=== PATIENT | female | born 1975 ===

== ENCOUNTER 2018-03-08 12:43 | Inpatient (IN) | payer MEDICAID ==
[2018-03-08] MEDS ORDERED: Sodium Chloride 0.9% 1,000 ML IV STA (15:13)
--- NOTE | 2018-03-08 15:27 | ED PDOC ---
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 She sat down and the next thing she realized was that the ambulance was there. Patient denies chest pain, shortness of breath, palpitations, paresthesia, incontinence, seizure like activity, head trauma, visual changes or any similar symptoms in the past. PMD: none provided Past Medical History Reviewed: Historical Data, Nursing Documentation, Vital Signs Vital Signs: Last Vital Signs Temp 98.5 F 03/08/18 12:48 Pulse 60 03/08/18 12:48 Resp 16 03/08/18 12:48 BP 86/55 L 03/08/18 12:48 Pulse Ox 100 03/08/18 12:48 - Medical History PMH: No Chronic Diseases - Surgical History Other surgeries: tubal ligation - Family History Family History: States: Unknown Family Hx - Social History Current smoker - smoking cessation education provided: No Ex-Smoker (has not smoked in the last 12 months): No Alcohol: None Drugs: Denies - Allergies Allergies/Adverse Reactions: Allergies Allergy/AdvReac Type Severity Reaction Status Date / Time No Known Allergies Allergy Verified 03/08/18 12:48 Review of Systems ROS Statement: Except As Marked, All Systems Reviewed And Found Negative Neurological: Positive for: Other (syncope) Physical Exam - Reviewed Nursing Documentation Reviewed: Yes Vital Signs Reviewed: Yes - Physical Exam Appears: Positive for: Non-toxic, No Acute Distress Head Exam: Positive for: ATRAUMATIC, NORMOCEPHALIC Skin: Positive for: Warm, Dry, Pallor Eye Exam: Positive for: EOMI, PERRL, Other (pale conjunctiva) Neck: Positive for: Normal Cardiovascular/Chest: Positive for: Regular Rate, Rhythm. Negative for: Murmur Respiratory: Positive for: Normal Breath Sounds. Negative for: Respiratory Distress Gastrointestinal/Abdominal: Positive for: Normal Exam, Soft. 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 Negative for: Motor/Sensory Deficits, Aphasia, Facial Droop - Laboratory Results Result Diagrams: 03/08/18 15:30 03/08/18 15:30 - ECG O2 Sat by Pulse Oximetry: 100 (RA) Pulse Ox Interpretation: Normal Medical Decision Making Medical Decision Making: Time: 151 Initial Impression: Syncope Initial Plan: --ABO/Rh type --Type and screen --EKG --CMP --Troponin --CBC with differentials --PTT --Prothrombin time --CXR --Glucose --NS --Urinalysis Time: 1609 Chest x-ray FINDINGS: LUNGS: No focal consolidation. Nodular density projecting over the left lower lobe, likely nipple shadow. Please note that chest x-ray has limited sensitivity for the detection of pulmonary masses. PLEURA: No significant pleural effusion identified. No definite pneumothorax . CARDIOVASCULAR: The cardiomediastinal silhouette appears within normal limits of size. OSSEOUS STRUCTURES: No acute osseous abnormality identified. VISUALIZED UPPER ABDOMEN: Unremarkable. OTHER FINDINGS: None. IMPRESSION: Macro No Nodular density at the left lung base likely represents nipple shadow. 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 ---- Scribe Attestation: Documented by Lyric Mcfarlane, acting as a scribe for Delia Pritchard MD Provider Scribe Attestation: All medical record entries made by the Scribe were at my direction and personally dictated by me. I have reviewed the chart and agree that the record accurately reflects my personal performance of the history, physical exam, medical decision making, and the department course for this patient. I have also personally directed, reviewed, and agree with the discharge instructions and disposition. Disposition - Clinical Impression Clinical Impression: Symptomatic anemia, Syncope - Patient ED Disposition Is Patient to be Admitted: Yes - Disposition Disposition Time: 17:00 Condition: GUARDED Forms: [facility] ([employer]) - Pt Status Changed To: Hospital Disposition Of: Inpatient - Admit Certification Admit to Inpatient:: After my assessment, the patient will require hospitalization for at least two midnights. This is because of the severity of symptoms shown, intensity of services needed, and/or the medical risk in this patient being treated as an outpatient. - POA Present On Arrival: None
[2018-03-08 16:01] LABS: ALB/GLOB RATIO 1.3 (1.0-2.1); ALBUMIN 4.4 g/dL (3.5-5.0); ALT/SGPT 28 U/L (9-52); AST/SGOT 32 U/L (14-36); BLOOD UREA NITROGEN 8 mg/dl (7-17); CALCIUM 9.3 mg/dL (8.4-10.2); GFR NON-AFRICAN AMERICAN > 60
[2018-03-08 16:02] LABS: INR 1.1; PROTHROMBIN TIME 12.2 Seconds (9.8-13.1)
[2018-03-08 16:05] LABS: PARTIAL THROMBOPLASTIN TIME 26.1 Seconds (25.6-37.1)
--- NOTE | 2018-03-08 16:10 | RAD ---
HISTORY: Syncope COMPARISON: None available. TECHNIQUE: Chest, one view. FINDINGS: LUNGS: No focal consolidation. Nodular density projecting over the left lower lobe, likely nipple shadow. Please note that chest x-ray has limited sensitivity for the detection of pulmonary masses. PLEURA: No significant pleural effusion identified. No definite pneumothorax . CARDIOVASCULAR: The cardiomediastinal silhouette appears within normal limits of size. OSSEOUS STRUCTURES: No acute osseous abnormality identified. VISUALIZED UPPER ABDOMEN: Unremarkable. OTHER FINDINGS: None. IMPRESSION: Macro No Nodular density at the left lung base likely represents nipple shadow.
[2018-03-08 16:28] LABS: SQUAMOUS EPITHIAL 1 /hpf (0-5); URINE BILIRUBIN NEGATIVE (NEGATIVE); URINE BLOOD NEGATIVE (NEGATIVE); URINE CLARITY SLIGHTY-CLOUDY (Clear); URINE COLOR YELLOW (YELLOW); URINE GLUCOSE (UA) NEG (Normal); URINE LEUKOCYTE ESTERASE NEG Leu/uL (Negative); URINE PROTEIN 30 mg/dL (NEGATIVE); URINE UROBILINOGEN 0.2-1.0 mg/dL (0.2-1.0)
[2018-03-08 16:39] LABS: BASO # 0.1 K/uL (0.0-0.2); BASO % 1.2 % (0.0-2.0); EOS % 0.4 % (0.0-4.0); LYMPH # 2.2 K/uL (1.0-4.3); LYMPH % 28.7 % (20.0-40.0); MEAN CELL VOLUME 55.2 fl (81.0-99.0); MEAN CORPUSCULAR HEMOGLOBIN 15.3 pg (27.0-31.0); MEAN CORPUSCULAR HGB CONC 27.7 g/dL (33.0-37.0); MEAN PLATELET VOLUME 8.5 fl (7.2-11.7); MONO # 0.3 K/uL (0.0-0.8); MONO % 3.8 % (0.0-10.0); NEUT # 5.2 K/uL (1.8-7.0); NEUT % 65.9 % (50.0-75.0); NRBC % 0.2 % (0.0-0.0); RBC 3.19 Mil/uL (3.80-5.20); RED CELL DISTRIBUTION WIDTH 21.7 % (11.5-14.5); WHITE BLOOD COUNT 7.8 K/uL (4.8-10.8)
[2018-03-08 16:51] LABS: HEMOGLOBIN 4.9 g/dL (12.0-16.0)
[2018-03-08] MEDS ORDERED: Dextrose 5%/0.9% NS 1,000 ML IV ONE (17:52)
--- NOTE | 2018-03-08 18:01 | CP.PCM.HP ---
History of Present Illness - History of Present Illness History of Present Illness: 42-year-old female with no past medical history presents to the ED with a syncopal episode which occurred at 12pm this afternoon while the patient was at work. Symptoms leading up to the syncope include feeling very warm, heavy perspiration, light headedness and dizziness. She lost consciousness and fell to the floor from sitting in a chair. She does not recall hitting her head, however cannot be sure. She has no family history of anemia. Her periods are regular every 28 days, last for 4-5 days, saturating 2-3 pads a day at most. She admits to constant dysphagia in upper 1/3 of esophagus to solids and liquids for the last three years. Due to dysphagia she has been on a soft diet with fluctuations in weight. She denies weakness, tingling, abnormal movements, headache, chills, vomiting, shortness of breath, epigastric pain, chest pain, angular cheilitis, blood in urine and/or stool, bright red stool, black stool, constipation, and diarrhea. PMD: None PMHx: None SurgHx: Tubal Ligation FMHx: None SocHx: Denies EtOH, tobacco and illicit drug use Medications: None OBGYN Hx: 2 children -LMP January 2018, 28 day cycle, 4-5 days, 2-3 pads on heaviest day Allergies: NKDA Code status: Full Code Present on Admission - Present on Admission Any Indicators Present on Admission: No History of DVT/PE: No History of Uncontrolled Diabetes: No Urinary Catheter: No Review of Systems - Review of Systems All systems: reviewed and no additional remarkable complaints except (as per HPI ) Past Patient History - Past Social History Alcohol: None Drugs: Denies - PSYCHIATRIC Hx Substance Use: No Meds Allergies/Adverse Reactions: Allergies Allergy/AdvReac Type Severity Reaction Status Date / Time No Known Allergies Allergy Verified 03/08/18 12:48 Physical Exam - Constitutional Appears: Non-toxic - Head Exam Head Exam: ATRAUMATIC - Eye Exam Eye Exam: Normal appearance - ENT Exam ENT Exam: Mucous Membranes Dry - Neck Exam Neck exam: Positive for: Full Rom - Respiratory Exam Respiratory Exam: Clear to Auscultation Bilateral, NORMAL BREATHING PATTERN. absent: Rhonchi, Wheezes, Respiratory Distress - Cardiovascular Exam Cardiovascular Exam: REGULAR RHYTHM - GI/Abdominal Exam GI & Abdominal Exam: Normal Bowel Sounds, Soft. absent: Distended, Firm, Guarding, Rebound, Tenderness - Neurological Exam Neurological exam: Alert, Oriented x3 - Psychiatric Exam Psychiatric exam: Normal Affect, Normal Mood - Skin Skin Exam: Pallor Results - Vital Signs Recent Vital Signs: Last Vital Signs Temp 98.5 F 03/08/18 16:57 Pulse 87 03/08/18 16:57 Resp 14 03/08/18 16:57 BP 95/64 L 03/08/18 16:57 Pulse Ox 100 03/08/18 17:21 - Labs Result Diagrams: 03/08/18 15:30 03/08/18 15:30 Labs: Laboratory Results - last 24 hr 03/08/18 03/08/18 03/08/18 13:26 15:30 15:30 WBC 7.8 RBC 3.19 L Hgb 4.9 L* Hct 17.6 L MCV 55.2 L MCH 15.3 L MCHC 27.7 L RDW 21.7 H Plt Count 281 MPV 8.5 Neut % (Auto) 65.9 Lymph % (Auto) 28.7 [place] % (Auto) 3.8 Eos % (Auto) 0.4 Baso % (Auto) 1.2 Neut # (Auto) 5.2 Lymph # (Auto) 2.2 [place] # (Auto) 0.3 Eos # (Auto) 0.0 Baso # (Auto) 0.1 PT INR APTT Sodium Potassium Chloride Carbon Dioxide Anion Gap BUN Creatinine Est GFR ( Amer) Est GFR (Non-Af Amer) POC Glucose (mg/dL) 105 Random Glucose Calcium Total Bilirubin AST ALT Alkaline Phosphatase Troponin I Total Protein Albumin Globulin Albumin/Globulin Ratio Urine Color Urine Clarity Urine pH Ur Specific [place] Urine Protein Urine Glucose (UA) Urine Ketones Urine Blood Urine Nitrate Urine Bilirubin Urine Urobilinogen Ur Leukocyte Esterase Urine RBC (Auto) Urine Microscopic WBC Ur Squamous Epith Cells Hyaline Casts Blood Type A POSITIVE Antibody Screen Negative BBK History Checked No verified bt 03/08/18 03/08/18 03/08/18 15:30 15:30 16:13 WBC RBC Hgb Hct MCV MCH MCHC RDW Plt Count MPV Neut % (Auto) Lymph % (Auto) [place] % (Auto) Eos % (Auto) Baso % (Auto) Neut # (Auto) Lymph # (Auto) [place] # (Auto) Eos # (Auto) Baso # (Auto) PT 12.2 INR 1.1 APTT 26.1 Sodium 140 Potassium 3.7 Chloride 108 H Carbon Dioxide 24 Anion Gap 12 BUN 8 Creatinine 0.6 L Est GFR ( Amer) > 60 Est GFR (Non-Af Amer) > 60 POC Glucose (mg/dL) Random Glucose 95 Calcium 9.3 Total Bilirubin 1.0 AST 32 ALT 28 Alkaline Phosphatase 48 Troponin I 0.0120 Total Protein 7.7 Albumin 4.4 Globulin 3.3 Albumin/Globulin Ratio 1.3 Urine Color Yellow Urine Clarity Slighty-cloudy Urine pH 6.0 Ur Specific [place] 1.012 Urine Protein 30 Urine Glucose (UA) Neg Urine Ketones Negative Urine Blood Negative Urine Nitrate Negative Urine Bilirubin Negative Urine Urobilinogen 0.2-1.0 Ur Leukocyte Esterase Neg Urine RBC (Auto) 3 Urine Microscopic WBC 4 Ur Squamous Epith Cells 1 Hyaline Casts 3-5 H Blood Type Antibody Screen BBK History Checked Assessment & Plan - Assessment and Plan (Free Text) Assessment: 42-year-old female with no past medical history presents to the ED with symptomatic anemia (Hg 4.9) and [id number] of dysphagia to solids and liquids. Symptomatic Anemia -Admit to telemetry -H/H 4.9/17.6 -2 PRBs -IVF: D5 NS @ 150 mls -Follow-up iron study -Follow up CBC -Follow up cultures -NPO after midnight for possible endoscopy, will follow recc from GI -GI consult (verbal) appreciated: will see patient tomorrow for possible endoscopy, transfuse to Hg 7, if patient develops any signs of active bleeding overnight contact GI DVT Prophylaxis -SCDs -Patient ambulating
[2018-03-08 19:34] LABS: IRON < 10 ug/dL (37-170)
[2018-03-08 19:45] LABS: TOTAL IRON BINDING CAPACITY 416 ug/dL (250-450)
[2018-03-09 06:00] LABS: PROTHROMBIN TIME 11.6 Seconds (9.8-13.1)
--- NOTE | 2018-03-09 07:01 | CP.PCM.CON ---
<Camacho Smith - Last Filed: 03/09/18 11:20> History of Present Illness - History of Present Illness History of Present Illness: PGY-4 GI Fellow Consult Note Pt is a 42 yo F without sig medical history presenting with syncope. She was at work yesterday around noon when she felt lightheaded, dizzy with diaphoresis and ultimately passed out after sitting down. She was out for unknown period of time. She was then brought to [facility] where she was found to have Hgb of 4.9 with somewhat low BPs, no signs of GI bleed with FOBT negative. Upon further discussion with the patient, she reports that over the last 3 years she has had dysphagia to both solids and liquids, prompting her to adopt a predominantly soft diet. As a result of these dietary changes she states that her weight loss has fluctuated over the years with up to 15 lb weight loss. She denied any hematemesis, melena, hematochezia, abd pain or prior endoscopies. 12 point ROS negative other than stated above MHx: None SurgHx: Tubal ligation Meds: Advil PRN FamHx: Denies h/o GI probs SocHx: Denied x 3 All: NKDA Past Patient History - Past Social History Smoking Status: Never Smoked - HEMATOLOGICAL/ONCOLOGICAL Hx AIDS: No Hx Anemia: Yes Hx Human Immunodeficiency Virus (HIV): No - MUSCULOSKELETAL/RHEUMATOLOGICAL Hx Falls: Yes - PSYCHIATRIC Hx Substance Use: No - SURGICAL HISTORY Hx Surgeries: Yes Hx Tubal Ligation: Yes - ANESTHESIA Hx Anesthesia: Yes Hx Anesthesia Reactions: No Hx Malignant Hyperthermia: No Has any member of the family had a problem w/ anesthesia?: No Meds Allergies/Adverse Reactions: Allergies Allergy/AdvReac Type Severity Reaction Status Date / Time No Known Allergies Allergy Verified 03/08/18 12:48 - Medications Medications: Current Medications Acetaminophen (Tylenol 325mg Tab) 650 mg PO Q6 PRN PRN Reason: Pain, Mild (1-3) Dextrose/Sodium Chloride (Dextrose 5%/0.9% Ns 1000 Ml) 1,000 mls @ 150 mls/hr IV .Q6H40M [facility] Stop: 03/10/18 06:40 Ondansetron HCl (Zofran Odt) 4 mg PO Q8H PRN PRN Reason: Nausea/Vomiting Physical Exam - Constitutional Appears: Well, Non-toxic - Head Exam Head Exam: ATRAUMATIC, NORMAL INSPECTION - Eye Exam Eye Exam: EOMI. absent: Conjunctival injection, Scleral icterus - ENT Exam ENT Exam: Mucous Membranes Dry, Normal External Ear Exam. absent: Mucous Membranes Moist - Respiratory Exam Respiratory Exam: Clear to Auscultation Bilateral, NORMAL BREATHING PATTERN. absent: Accessory Muscle Use - Cardiovascular Exam Cardiovascular Exam: REGULAR RHYTHM, RRR - GI/Abdominal Exam GI & Abdominal Exam: Normal Bowel Sounds, Soft. absent: Bruit, Diminished Bowel Sounds, Distended, Firm, Guarding, Hernia, Hyperactive Bowel Sounds, Hypoactive Bowel Sounds, Mass, Organomegaly, Pulsatile Mass, Rebound, Rigid, Tenderness - Rectal Exam Rectal Exam: Deferred - Extremities Exam Extremities exam: Positive for: normal inspection. Negative for: pedal edema - Neurological Exam Neurological exam: Alert, CN II-XII Intact, Oriented x3 - Psychiatric Exam Psychiatric exam: Normal Affect, Normal Mood - Skin Skin Exam: Normal Color, Warm Results - Vital Signs Recent Vital Signs: Last Vital Signs Temp 98.2 F 03/09/18 04:52 Pulse 65 03/09/18 04:52 Resp 18 03/09/18 04:52 BP 100/64 03/09/18 04:52 Pulse Ox 100 03/09/18 04:52 - Labs Result Diagrams: 03/09/18 10:02 03/09/18 10:02 Labs: Laboratory Results - last 24 hr 03/08/18 03/08/18 03/08/18 13:26 15:30 15:30 WBC 7.8 RBC 3.19 L Hgb 4.9 L* Hct 17.6 L MCV 55.2 L MCH 15.3 L MCHC 27.7 L RDW 21.7 H Plt Count 281 MPV 8.5 Neut % (Auto) 65.9 Lymph % (Auto) 28.7 [place] % (Auto) 3.8 Eos % (Auto) 0.4 Baso % (Auto) 1.2 Neut # (Auto) 5.2 Lymph # (Auto) 2.2 [place] # (Auto) 0.3 Eos # (Auto) 0.0 Baso # (Auto) 0.1 PT INR APTT Sodium Potassium Chloride Carbon Dioxide Anion Gap BUN Creatinine Est GFR ( Amer) Est GFR (Non-Af Amer) POC Glucose (mg/dL) 105 Random Glucose Calcium Iron TIBC % Saturation Ferritin Total Bilirubin AST ALT Alkaline Phosphatase Troponin I Total Protein Albumin Globulin Albumin/Globulin Ratio Urine Color Urine Clarity Urine pH Ur Specific [place] Urine Protein Urine Glucose (UA) Urine Ketones Urine Blood Urine Nitrate Urine Bilirubin Urine Urobilinogen Ur Leukocyte Esterase Urine RBC (Auto) Urine Microscopic WBC Ur Squamous Epith Cells Hyaline Casts Stool Occult Blood Blood Type A POSITIVE Blood Type Confirm Antibody Screen Negative Crossmatch See Detail BBK History Checked No verified bt 03/08/18 03/08/18 03/08/18 15:30 15:30 16:13 WBC RBC Hgb Hct MCV MCH MCHC RDW Plt Count MPV Neut % (Auto) Lymph % (Auto) [place] % (Auto) Eos % (Auto) Baso % (Auto) Neut # (Auto) Lymph # (Auto) [place] # (Auto) Eos # (Auto) Baso # (Auto) PT 12.2 INR 1.1 APTT 26.1 Sodium 140 Potassium 3.7 Chloride 108 H Carbon Dioxide 24 Anion Gap 12 BUN 8 Creatinine 0.6 L Est GFR ( Amer) > 60 Est GFR (Non-Af Amer) > 60 POC Glucose (mg/dL) Random Glucose 95 Calcium 9.3 Iron TIBC % Saturation Ferritin Total Bilirubin 1.0 AST 32 ALT 28 Alkaline Phosphatase 48 Troponin I 0.0120 Total Protein 7.7 Albumin 4.4 Globulin 3.3 Albumin/Globulin Ratio 1.3 Urine Color Yellow Urine Clarity Slighty-cloudy Urine pH 6.0 Ur Specific [place] 1.012 Urine Protein 30 Urine Glucose (UA) Neg Urine Ketones Negative Urine Blood Negative Urine Nitrate Negative Urine Bilirubin Negative Urine Urobilinogen 0.2-1.0 Ur Leukocyte Esterase Neg Urine RBC (Auto) 3 Urine Microscopic WBC 4 Ur Squamous Epith Cells 1 Hyaline Casts 3-5 H Stool Occult Blood Blood Type Blood Type Confirm Antibody Screen Crossmatch BBK History Checked 03/08/18 03/08/18 03/08/18 17:20 18:02 18:04 WBC RBC Hgb Hct MCV MCH MCHC RDW Plt Count MPV Neut % (Auto) Lymph % (Auto) [place] % (Auto) Eos % (Auto) Baso % (Auto) Neut # (Auto) Lymph # (Auto) [place] # (Auto) Eos # (Auto) Baso # (Auto) PT INR APTT Sodium Potassium Chloride Carbon Dioxide Anion Gap BUN Creatinine Est GFR ( Amer) Est GFR (Non-Af Amer) POC Glucose (mg/dL) Random Glucose Calcium Iron TIBC % Saturation Ferritin 1.9 L Total Bilirubin AST ALT Alkaline Phosphatase Troponin I Total Protein Albumin Globulin Albumin/Globulin Ratio Urine Color Urine Clarity Urine pH Ur Specific [place] Urine Protein Urine Glucose (UA) Urine Ketones Urine Blood Urine Nitrate Urine Bilirubin Urine Urobilinogen Ur Leukocyte Esterase Urine RBC (Auto) Urine Microscopic WBC Ur Squamous Epith Cells Hyaline Casts Stool Occult Blood Negative Blood Type Blood Type Confirm A POSITIVE Antibody Screen Crossmatch BBK History Checked 03/08/18 03/09/18 18:04 05:02 WBC RBC Hgb Hct MCV MCH MCHC RDW Plt Count MPV Neut % (Auto) Lymph % (Auto) [place] % (Auto) Eos % (Auto) Baso % (Auto) Neut # (Auto) Lymph # (Auto) [place] # (Auto) Eos # (Auto) Baso # (Auto) PT 11.6 INR 1.0 APTT 30.0 Sodium Potassium Chloride Carbon Dioxide Anion Gap BUN Creatinine Est GFR ( Amer) Est GFR (Non-Af Amer) POC Glucose (mg/dL) Random Glucose Calcium Iron < 10 L TIBC 416 % Saturation 2.40 L Ferritin Total Bilirubin AST ALT Alkaline Phosphatase Troponin I Total Protein Albumin Globulin Albumin/Globulin Ratio Urine Color Urine Clarity Urine pH Ur Specific [place] Urine Protein Urine Glucose (UA) Urine Ketones Urine Blood Urine Nitrate Urine Bilirubin Urine Urobilinogen Ur Leukocyte Esterase Urine RBC (Auto) Urine Microscopic WBC Ur Squamous Epith Cells Hyaline Casts Stool Occult Blood Blood Type Blood Type Confirm Antibody Screen Crossmatch BBK History Checked Assessment & Plan - Assessment and Plan (Free Text) Assessment: 42 yo F w/o medical history presenting with syncopal episode found to have Hgb 4.9 with reports of chronic dysphagia. # Acute Microcytic Anemia: Likely cause of syncope. Unclear how long has been anemic, but suspect ongoing slow downtrend given history. Reassuringly, FOBT negative in ED and no signs of active GI bleed. Pt reports normal menses. # Dysphagia: Chronic ([id number]) to both solids and liquids. Reports sensation in upper 1/3 of esophagus. Perhaps dietary modifications of soft/liquid diet lead to nutritional deficiency as cause of anemia. DDx malignancy, stricture, dysmotiliy, EOE, etc. Plan: - NPO for EGD today - Check Fe studies - Further recs pending EGD evaluation Pt seen and examined with Dr. Hill <Navdeep Hill - Last Filed: 03/09/18 12:03> Meds - Medications Medications: Current Medications Acetaminophen (Tylenol 325mg Tab) 650 mg PO Q6 PRN PRN Reason: Pain, Mild (1-3) Dextrose/Sodium Chloride (Dextrose 5%/0.9% Ns 1000 Ml) 1,000 mls @ 150 mls/hr IV .Q6H40M [facility] Stop: 03/10/18 06:40 Last Admin: 03/09/18 08:51 Dose: 150 mls/hr Iron Sucrose 200 mg/ Sodium (Chloride) 110 mls @ 110 mls/hr IVPB DAILY [facility] Stop: 03/11/18 09:59 Last Admin: 03/09/18 09:48 Dose: 110 mls/hr Ondansetron HCl (Zofran Odt) 4 mg PO Q8H PRN PRN Reason: Nausea/Vomiting Pantoprazole Sodium (Protonix Inj) 40 mg IVP DAILY [facility] Last Admin: 03/09/18 10:41 Dose: 40 mg Results - Vital Signs Recent Vital Signs: Last Vital Signs Temp 98.1 F 03/09/18 11:30 Pulse 58 L 03/09/18 11:30 Resp 18 03/09/18 11:30 BP 105/63 03/09/18 11:30 Pulse Ox 100 03/09/18 11:30 - Labs Result Diagrams: 03/09/18 10:02 03/09/18 10:02 Labs: Laboratory Results - last 24 hr 03/08/18 03/08/18 03/08/18 13:26 15:30 15:30 WBC 7.8 RBC 3.19 L Hgb 4.9 L* Hct 17.6 L MCV 55.2 L MCH 15.3 L MCHC 27.7 L RDW 21.7 H Plt Count 281 MPV 8.5 Neut % (Auto) 65.9 Lymph % (Auto) 28.7 [place] % (Auto) 3.8 Eos % (Auto) 0.4 Baso % (Auto) 1.2 Neut # (Auto) 5.2 Lymph # (Auto) 2.2 [place] # (Auto) 0.3 Eos # (Auto) 0.0 Baso # (Auto) 0.1 PT INR APTT Sodium Potassium Chloride Carbon Dioxide Anion Gap BUN Creatinine Est GFR ( Amer) Est GFR (Non-Af Amer) POC Glucose (mg/dL) 105 Random Glucose Calcium Phosphorus Magnesium Iron TIBC % Saturation Ferritin Total Bilirubin AST ALT Alkaline Phosphatase Troponin I Total Protein Albumin Globulin Albumin/Globulin Ratio Free T4 TSH 3rd Generation Urine Color Urine Clarity Urine pH Ur Specific [place] Urine Protein Urine Glucose (UA) Urine Ketones Urine Blood Urine Nitrate Urine Bilirubin Urine Urobilinogen Ur Leukocyte Esterase Urine RBC (Auto) Urine Microscopic WBC Ur Squamous Epith Cells Hyaline Casts Stool Occult Blood Blood Type A POSITIVE Blood Type Confirm Antibody Screen Negative Crossmatch See Detail BBK History Checked No verified bt 03/08/18 03/08/18 03/08/18 15:30 15:30 16:13 WBC RBC Hgb Hct MCV MCH MCHC RDW Plt Count MPV Neut % (Auto) Lymph % (Auto) [place] % (Auto) Eos % (Auto) Baso % (Auto) Neut # (Auto) Lymph # (Auto) [place] # (Auto) Eos # (Auto) Baso # (Auto) PT 12.2 INR 1.1 APTT 26.1 Sodium 140 Potassium 3.7 Chloride 108 H Carbon Dioxide 24 Anion Gap 12 BUN 8 Creatinine 0.6 L Est GFR ( Amer) > 60 Est GFR (Non-Af Amer) > 60 POC Glucose (mg/dL) Random Glucose 95 Calcium 9.3 Phosphorus Magnesium Iron TIBC % Saturation Ferritin Total Bilirubin 1.0 AST 32 ALT 28 Alkaline Phosphatase 48 Troponin I 0.0120 Total Protein 7.7 Albumin 4.4 Globulin 3.3 Albumin/Globulin Ratio 1.3 Free T4 TSH 3rd Generation Urine Color Yellow Urine Clarity Slighty-cloudy Urine pH 6.0 Ur Specific [place] 1.012 Urine Protein 30 Urine Glucose (UA) Neg Urine Ketones Negative Urine Blood Negative Urine Nitrate Negative Urine Bilirubin Negative Urine Urobilinogen 0.2-1.0 Ur Leukocyte Esterase Neg Urine RBC (Auto) 3 Urine Microscopic WBC 4 Ur Squamous Epith Cells 1 Hyaline Casts 3-5 H Stool Occult Blood Blood Type Blood Type Confirm Antibody Screen Crossmatch BBK History Checked 03/08/18 03/08/18 03/08/18 17:20 18:02 18:04 WBC RBC Hgb Hct MCV MCH MCHC RDW Plt Count MPV Neut % (Auto) Lymph % (Auto) [place] % (Auto) Eos % (Auto) Baso % (Auto) Neut # (Auto) Lymph # (Auto) [place] # (Auto) Eos # (Auto) Baso # (Auto) PT INR APTT Sodium Potassium Chloride Carbon Dioxide Anion Gap BUN Creatinine Est GFR ( Amer) Est GFR (Non-Af Amer) POC Glucose (mg/dL) Random Glucose Calcium Phosphorus Magnesium Iron TIBC % Saturation Ferritin 1.9 L Total Bilirubin AST ALT Alkaline Phosphatase Troponin I Total Protein Albumin Globulin Albumin/Globulin Ratio Free T4 TSH 3rd Generation Urine Color Urine Clarity Urine pH Ur Specific [place] Urine Protein Urine Glucose (UA) Urine Ketones Urine Blood Urine Nitrate Urine Bilirubin Urine Urobilinogen Ur Leukocyte Esterase Urine RBC (Auto) Urine Microscopic WBC Ur Squamous Epith Cells Hyaline Casts Stool Occult Blood Negative Blood Type Blood Type Confirm A POSITIVE Antibody Screen Crossmatch BBK History Checked 03/08/18 03/08/18 03/08/18 18:04 18:14 18:14 WBC RBC Hgb Hct MCV MCH MCHC RDW Plt Count MPV Neut % (Auto) Lymph % (Auto) [place] % (Auto) Eos % (Auto) Baso % (Auto) Neut # (Auto) Lymph # (Auto) [place] # (Auto) Eos # (Auto) Baso # (Auto) PT INR APTT Sodium Potassium Chloride Carbon Dioxide Anion Gap BUN Creatinine Est GFR ( Amer) Est GFR (Non-Af Amer) POC Glucose (mg/dL) Random Glucose Calcium Phosphorus Magnesium Iron < 10 L TIBC 416 % Saturation 2.40 L Ferritin Total Bilirubin AST ALT Alkaline Phosphatase Troponin I Total Protein Albumin Globulin Albumin/Globulin Ratio Free T4 0.89 TSH 3rd Generation 3.55 Urine Color Urine Clarity Urine pH Ur Specific [place] Urine Protein Urine Glucose (UA) Urine Ketones Urine Blood Urine Nitrate Urine Bilirubin Urine Urobilinogen Ur Leukocyte Esterase Urine RBC (Auto) Urine Microscopic WBC Ur Squamous Epith Cells Hyaline Casts Stool Occult Blood Blood Type Blood Type Confirm Antibody Screen Crossmatch BBK History Checked 03/09/18 03/09/18 03/09/18 05:02 10:02 10:02 WBC 3.9 L RBC 3.52 L Hgb 6.9 L D Hct 22.8 L MCV 64.7 L D MCH 19.5 L MCHC 30.2 L RDW 31.4 H Plt Count 220 MPV 8.8 Neut % (Auto) 54.4 Lymph % (Auto) 34.7 [place] % (Auto) 7.0 Eos % (Auto) 1.2 Baso % (Auto) 2.7 H Neut # (Auto) 2.1 Lymph # (Auto) 1.3 [place] # (Auto) 0.3 Eos # (Auto) 0.0 Baso # (Auto) 0.1 PT 11.6 INR 1.0 APTT 30.0 Sodium 140 Potassium 3.6 Chloride 110 H Carbon Dioxide 25 Anion Gap 9 L BUN 4 L Creatinine 0.6 L Est GFR ( Amer) > 60 Est GFR (Non-Af Amer) > 60 POC Glucose (mg/dL) Random Glucose 93 Calcium 8.3 L Phosphorus 3.0 Magnesium 1.9 Iron TIBC % Saturation Ferritin Total Bilirubin 2.2 H AST 35 ALT 19 Alkaline Phosphatase 34 L D Troponin I Total Protein 6.6 Albumin 3.5 D Globulin 3.0 Albumin/Globulin Ratio 1.2 Free T4 TSH 3rd Generation Urine Color Urine Clarity Urine pH Ur Specific [place] Urine Protein Urine Glucose (UA) Urine Ketones Urine Blood Urine Nitrate Urine Bilirubin Urine Urobilinogen Ur Leukocyte Esterase Urine RBC (Auto) Urine Microscopic WBC Ur Squamous Epith Cells Hyaline Casts Stool Occult Blood Blood Type Blood Type Confirm Antibody Screen Crossmatch BBK History Checked Attending/Attestation - Attestation I have personally seen and examined this patient.: Yes I have fully participated in the care of the patient.: Yes I have reviewed all pertinent clinical information: Yes Notes (Text): 03/09/18 12:00 Patient seen for EGD today. In a nutshell 42 yo F w/o medical history presenting with syncopal episode found to have Hgb 4.9 with reports of chronic dysphagia for solids and liquids for few years. 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 Will require CT neck, chect and abdomen with po and IV contrast and surgical consult if its malignant. NPO. Discussed in detail with the primary care physician
--- NOTE | 2018-03-09 07:34 | CARD ---
APPROVED REPORT Date of service: 03/08/2018 EKG Measurement Heart [id number] <Conclusion> Sinus bradycardia Otherwise normal ECG
[2018-03-09] MEDS: Dextrose 5%/0.9% NS 1,000 ML IV SCH ×2 (08:51→14:45)
--- NOTE | 2018-03-09 09:13 | CP.PCM.PN ---
Addendum entered and electronically signed by Jennyfer Murillo MD 03/09/18 10: 48: PE: glossitis noted on physical exam Original Note: Subjective - Date & Time of Evaluation Date of Evaluation: 03/09/18 Time of Evaluation: 09:07 - Subjective Subjective: Patient seen bedside in no acute distress. She reports to be feeling much better clinically after her two units of PRBCs overnight and denies headache, dizziness, chest pain, shortness of breathe, vomiting, abdominal pain, constipation and diarrhea. Objective - Vital Signs/Intake and Output Vital Signs (last 24 hours): Temp Pulse Resp BP Pulse Ox 98.4 F 66 18 97/64 L 100 03/09/18 07:15 03/09/18 07:15 03/09/18 07:15 03/09/18 07:15 03/09/18 04:52 Intake and Output: 03/09/18 03/09/18 06:59 18:59 Intake Total 650 Balance 650 - Medications Medications: Current Medications Acetaminophen (Tylenol 325mg Tab) 650 mg PO Q6 PRN PRN Reason: Pain, Mild (1-3) Dextrose/Sodium Chloride (Dextrose 5%/0.9% Ns 1000 Ml) 1,000 mls @ 150 mls/hr IV .Q6H40M [facility] Stop: 03/10/18 06:40 Last Admin: 03/09/18 08:51 Dose: 150 mls/hr Iron Sucrose 200 mg/ Sodium (Chloride) 110 mls @ 110 mls/hr IVPB DAILY [facility] Stop: 03/11/18 09:59 Ondansetron HCl (Zofran Odt) 4 mg PO Q8H PRN PRN Reason: Nausea/Vomiting Pantoprazole Sodium (Protonix Inj) 40 mg IVP DAILY [facility] - Labs Labs: 03/08/18 15:30 03/08/18 15:30 PT 11.6 Seconds (9.8-13.1) 03/09/18 05:02 INR 1.0 03/09/18 05:02 APTT 30.0 Seconds (25.6-37.1) 03/09/18 05:02 - Constitutional Appears: Non-toxic - Head Exam Head Exam: NORMAL INSPECTION - Eye Exam Eye Exam: Normal appearance - ENT Exam ENT Exam: Mucous Membranes Moist - Neck Exam Neck Exam: Full ROM, Normal Inspection. absent: Tenderness - Respiratory Exam Respiratory Exam: Clear to Ausculation Bilateral, NORMAL BREATHING PATTERN. absent: Wheezes, Respiratory Distress - Cardiovascular Exam Cardiovascular Exam: REGULAR RHYTHM - GI/Abdominal Exam GI & Abdominal Exam: Soft, Normal Bowel Sounds. absent: Guarding, Tenderness, Rebound - Extremities Exam Extremities Exam: Normal Inspection. absent: Pedal Edema - Psychiatric Exam Psychiatric exam: Normal Affect, Normal Mood - Skin Skin Exam: Normal Color, Warm Additional comments: Pallor significantly improved from yesterday (03/08) Assessment and Plan - Assessment and Plan (Free Text) Assessment: 42-year-old female with no past medical history presents to the ED with symptomatic anemia (Hg 4.9) and [id number] of dysphagia to solids and liquids. Symptomatic Anemia -Follow up H/H (4.9/17.6 on 03/08) -Status-post 2 PRBs (03/08) -IVF: D5 NS @ 150 mls -Venofer 200 mg -Iron study: Iron <10; %sat 2.4; TIBC 416; Ferritin 1.9 -Follow up cultures -NPO after midnight for possible endoscopy 03/09 -Protonix 40 mg IV -GI (Dr Hill): check Fe studies, further recs pending EGD evaluation Dysphagia -Upper 1/3 esophagus -EGD today (03/09) -GI (Dr Hill): NPO for EGD today, DVT Prophylaxis -SCDs -Patient ambulating
--- NOTE | 2018-03-09 09:38 | CT ---
Date of service: 03/08/2018 PROCEDURE: CT HEAD WITHOUT CONTRAST. HISTORY: Syncope COMPARISON: None available. TECHNIQUE: Axial computed tomography images were obtained through the head/brain without intravenous contrast. Radiation dose: Total exam DLP = 719.83 mGy-cm. This CT exam was performed using one or more of the following dose reduction techniques: Automated exposure control, adjustment of the mA and/or kV according to patient size, and/or use of iterative reconstruction technique. FINDINGS: HEMORRHAGE: No intracranial hemorrhage. BRAIN: Normal coronel-white matter differentiation and density are appreciated throughout the cerebrum and cerebellum with the brainstem appearing unremarkable as well. There is no mass effect. There is no suspicious extra-axial fluid collection and the midline brain anatomy appears diffusely unremarkable. VENTRICLES: Unremarkable. No hydrocephalus. CALVARIUM: Unremarkable. PARANASAL SINUSES: Unremarkable as visualized. No significant inflammatory changes. MASTOID AIR CELLS: Unremarkable as visualized. No inflammatory changes. OTHER FINDINGS: None. IMPRESSION: Unremarkable CT of the Head.
[2018-03-09 10:42] LABS: BASO # 0.1 K/uL (0.0-0.2); BASO % 2.7 % (0.0-2.0); EOS % 1.2 % (0.0-4.0); HEMOGLOBIN 6.9 g/dL (12.0-16.0); LYMPH # 1.3 K/uL (1.0-4.3); LYMPH % 34.7 % (20.0-40.0); MEAN CELL VOLUME 64.7 fl (81.0-99.0); MEAN CORPUSCULAR HEMOGLOBIN 19.5 pg (27.0-31.0); MEAN CORPUSCULAR HGB CONC 30.2 g/dL (33.0-37.0); MEAN PLATELET VOLUME 8.8 fl (7.2-11.7); MONO # 0.3 K/uL (0.0-0.8); NEUT # 2.1 K/uL (1.8-7.0); NEUT % 54.4 % (50.0-75.0); NRBC % 0.2 % (0.0-0.0); RBC 3.52 Mil/uL (3.80-5.20); RED CELL DISTRIBUTION WIDTH 31.4 % (11.5-14.5); WHITE BLOOD COUNT 3.9 K/uL (4.8-10.8)
[2018-03-09 11:07] LABS: ALB/GLOB RATIO 1.2 (1.0-2.1); ALBUMIN 3.5 g/dL (3.5-5.0); ALT/SGPT 19 U/L (9-52); AST/SGOT 35 U/L (14-36); BLOOD UREA NITROGEN 4 mg/dl (7-17); CALCIUM 8.3 mg/dL (8.4-10.2); GFR NON-AFRICAN AMERICAN > 60
[2018-03-09] MEDS ORDERED: EPINEPHrine 1 mg/ml (1:1000) Inj ONE (11:27)
[2018-03-09] MEDS ORDERED: Lactated Ringer's 500 ML IV ONE (11:33)
[2018-03-09] MEDS ORDERED: Propofol 10 mg/ml Inj (20 ML) ONE (11:44)
[2018-03-09] MEDS ORDERED: Iohexol 240 (50 ml) PO STA (12:03)
[2018-03-09] MEDS ORDERED: Iohexol 300 100 ML IJ ONE (16:42)
[2018-03-09] MEDS ORDERED: Sodium Chloride 0.9% 50 ML IV ONE (16:42)
--- NOTE | 2018-03-09 18:19 | CT ---
Date of service: 03/09/2018 PROCEDURE: CT NECK WITH CONTRAST CT neck and chest with oral contrast. HISTORY: GI requested, 3 year history dysphagia TECHNIQUE: CT of the neck with intravenous contrast. Coronal and sagittal reformats generated. Intravenous contrast dose: 90 cc Omnipaque 300. Radiation dose: DLP 642.47 mGy-cm This CT exam was performed using one or more of the following dose reduction techniques: Automated exposure control, adjustment of the mA and/or kV according to patient size, and/or use of iterative reconstruction technique. FINDINGS: NASOPHARYNX: Unremarkable. SUPRAHYOID NECK: Unremarkable oropharynx, oral cavity, parapharyngeal space and retropharyngeal space. INFRAHYOID NECK: Unremarkable larynx, hypopharynx, and supraglottic space. Vocal cords intact. MASS: None. GLANDS: Parotid and submandibular glands unremarkable. Mild enlargement of the thyroid gland without focal abnormality. LYMPH NODES: Enlarged cervical lymph nodes bilaterally right greater than left primarily affecting anali chains 2A and 2B. The largest lymph nodes interposed between the floor of the mouth and the sternocleidomastoid on the right measure 1.5 x 2 cm. Additional submandibular lymphadenopathy primarily level 1A and 1B. CERVICAL SPINE: No fracture or focal lesion. VASCULAR STRUCTURES: Unremarkable. CT THORAX:: Trace bilateral pleural effusions. Dependent atelectasis lower lobes. Featureless esophagus as visualized. IMPRESSION: Cervical lymphadenopathy bilaterally right greater than left. The findings some likely infectious/ inflammatory. Trace bilateral pleural effusions and dependent atelectasis lung bases. Unremarkable esophagus as visualized. No foreign body identified.
--- NOTE | 2018-03-09 18:22 | CT ---
Date of service: 03/09/2018 PROCEDURE: CT Abdomen with oral and intravenous contrast. HISTORY: GI requested, chronic dysphagia, anemia COMPARISON: None. TECHNIQUE: Axial images of the abdomen from lung bases to iliac crest with and without intravenous contrast enhancement. Coronal and sagittal reformats generated. Oral contrast also administered. Intravenous contrast Dose: 90 cc Omnipaque 300 Radiation dose: Total exam DLP = 278.75 mGy-cm. This CT exam was performed using one or more of the following dose reduction techniques: Automated exposure control, adjustment of the mA and/or kV according to patient size, and/or use of iterative reconstruction technique. FINDINGS: LOWER THORAX: Trace bilateral pleural effusions. LIVER: Unremarkable liver is visualized. Edema of the periportal structures of uncertain etiology or significance. GALLBLADDER AND BILE DUCTS: Gallstones identified. Pericholecystic/right upper quadrant fluid identified. PANCREAS: Unremarkable. No gross lesion or ductal dilatation. SPLEEN: Unremarkable. ADRENALS: Unremarkable. No mass. KIDNEYS AND URETERS: Unremarkable. No hydronephrosis. No solid mass. VASCULATURE: Unremarkable. No aortic aneurysm. BOWEL: Unremarkable. No obstruction. No gross mural thickening. APPENDIX: Not visible. The study does not include the pelvis. PERITONEUM: Incompletely visualize primarily right upper quadrant and subhepatic ascites. LYMPH NODES: Unremarkable. No enlarged lymph nodes. BONES: No acute fracture. OTHER FINDINGS: None. IMPRESSION: Cholelithiasis. Pericholecystic fluid identified. Acute cholecystitis should be considered. Periportal edema of uncertain etiology/ significance.
[2018-03-10 06:20] LABS: HEMOGLOBIN 6.9 g/dL (12.0-16.0); MEAN CORPUSCULAR HEMOGLOBIN 19.5 pg (27.0-31.0); MEAN CORPUSCULAR HGB CONC 29.9 g/dL (33.0-37.0); RBC 3.53 Mil/uL (3.80-5.20); RED CELL DISTRIBUTION WIDTH 31.6 % (11.5-14.5); WHITE BLOOD COUNT 3.5 K/uL (4.8-10.8)
[2018-03-10] MEDS: Dextrose 5%/0.9% NS 1,000 ML IV SCH (08:52)
--- NOTE | 2018-03-10 10:18 | CP.PCM.PN ---
Addendum entered and electronically signed by Jennyfer Murillo MD 03/10/18 11: 29: IR CT guided biopsy requested for enlarged right cervical lymph node noted on CT 03/09: 1.5x2cm, between floor of mouth and sternocleidomastoid. Original Note: <Jennyfer Murillo - Last Filed: 03/10/18 10:38> Subjective - Date & Time of Evaluation Date of Evaluation: 03/10/18 Time of Evaluation: 08:30 - Subjective Subjective: Patient seen bedside in no acute distress. She has no complaints and denies nausea, vomiting, dizziness, change in vision, shortness of breath, chest pain, constipation or diarrhea. Objective - Vital Signs/Intake and Output Vital Signs (last 24 hours): Temp Pulse Resp BP Pulse Ox 98.9 F 73 20 93/60 L 99 03/10/18 08:00 03/10/18 08:00 03/10/18 08:00 03/10/18 08:00 03/10/18 08:00 - Medications Medications: Current Medications Acetaminophen (Tylenol 325mg Tab) 650 mg PO Q6 PRN PRN Reason: Pain, Mild (1-3) Iron Sucrose 200 mg/ Sodium (Chloride) 110 mls @ 110 mls/hr IVPB DAILY [facility] Stop: 03/11/18 09:59 Last Admin: 03/10/18 08:51 Dose: 110 mls/hr Ondansetron HCl (Zofran Odt) 4 mg PO Q8H PRN PRN Reason: Nausea/Vomiting Pantoprazole Sodium (Protonix Inj) 40 mg IVP DAILY [facility] Last Admin: 03/10/18 08:51 Dose: 40 mg - Labs Labs: 03/10/18 05:20 03/09/18 10:02 PT 11.6 Seconds (9.8-13.1) 03/09/18 05:02 INR 1.0 03/09/18 05:02 APTT 30.0 Seconds (25.6-37.1) 03/09/18 05:02 - Constitutional Appears: Non-toxic - Head Exam Head Exam: ATRAUMATIC - Eye Exam Eye Exam: Normal appearance - ENT Exam ENT Exam: Normal External Ear Exam Additional comments: glossitis - Neck Exam Neck Exam: Full ROM, Thyromegaly (minimal). absent: Tenderness - Respiratory Exam Respiratory Exam: Clear to Ausculation Bilateral, NORMAL BREATHING PATTERN - Cardiovascular Exam Cardiovascular Exam: REGULAR RHYTHM - GI/Abdominal Exam GI & Abdominal Exam: Tenderness (epigastric - very minimal), Normal Bowel Sounds. absent: Guarding, Rigid, Pulsatile Mass, Rebound - Back Exam Back Exam: NORMAL INSPECTION - Neurological Exam Neurological Exam: Alert, Awake, Oriented x3 - Psychiatric Exam Psychiatric exam: Normal Affect, Normal Mood - Skin Skin Exam: Normal Color, Warm Additional comments: pallor improved Assessment and Plan - Assessment and Plan (Free Text) Assessment: 42-year-old female with no past medical history presents to the ED with symptomatic anemia (Hg 4.9) and 4-[id number]-skxkkmm of dysphagia to solids and liquids. 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 -CT Neck/Chest: Cervical lymphadenopathy right greater than left likely infectious/inflam, trace bilateral pleural effusions and dependent atelectasis lung bases, unremarkable esophagus -CT Abd: Cholelithiasis, pericholecystic fluid identified, acute cholecystitis should be considered -Barium swallow planned for 03/10 DVT Prophylaxis -SCDs -Patient ambulating <Veronica Pettit - Last Filed: 03/10/18 17:14> Objective - Vital Signs/Intake and Output Vital Signs (last 24 hours): Temp Pulse Resp BP Pulse Ox 98.4 F 967 H 20 115/69 97 03/10/18 15:41 03/10/18 15:41 03/10/18 15:41 03/10/18 15:41 03/10/18 15:41 - Medications Medications: Current Medications Acetaminophen (Tylenol 325mg Tab) 650 mg PO Q6 PRN PRN Reason: Pain, Mild (1-3) Last Admin: 03/10/18 15:42 Dose: 650 mg Iron Sucrose 200 mg/ Sodium (Chloride) 110 mls @ 110 mls/hr IVPB DAILY [facility] Stop: 03/11/18 09:59 Last Admin: 03/10/18 08:51 Dose: 110 mls/hr Morphine Sulfate (Morphine) 1 mg IVP Q6 PRN PRN Reason: Pain, moderate (4-7) Stop: 03/11/18 16:02 Ondansetron HCl (Zofran Odt) 4 mg PO Q8H PRN PRN Reason: Nausea/Vomiting Pantoprazole Sodium (Protonix Inj) 40 mg IVP DAILY [facility] Last Admin: 03/10/18 08:51 Dose: 40 mg - Labs Labs: 03/10/18 05:20 03/09/18 10:02 PT 11.6 Seconds (9.8-13.1) 03/09/18 05:02 INR 1.0 03/09/18 05:02 APTT 30.0 Seconds (25.6-37.1) 03/09/18 05:02 Attending/Attestation - Attestation I have personally seen and examined this patient.: Yes I have fully participated in the care of the patient.: Yes I have reviewed all pertinent clinical information, including history, physical exam and plan: Yes Notes (Text): Symptomatic Iron Deficiency Anemia, likely chronic which has worsened Syncope due to Severe Anemia Cervical Lymphadenopathy Dysphagia likely due to large cervical lymph nodes compressing on the Esophagus - HIV test done ( nonreactive), check for PPD, Quantiferon, CMV, RPR - Speech for swallow eval -IR consulted for CT guided biosy of LN- done by Dr Luna , discussed case -Dr Morales consulted for further work up for anemia ? BM biopsy - ID consult for poss infectious etiology, discussed case with Dr beaver
--- NOTE | 2018-03-10 11:30 | CP.PCM.PCO ---
Physician Communication Note - Physician Communication Note Physician Communication Note: CT reviwed. Extrinsic compression from LN- needs hematology eval
[2018-03-10] MEDS ORDERED: Tuberculin 5 Units/0.1 ml Inj ID ONE (11:47)
--- NOTE | 2018-03-10 11:49 | CP.PCM.CON ---
History of Present Illness - History of Present Illness History of Present Illness: 42 year old female with chronic dysphagia, presenting after a syncopal episode, found to be anemic. She notes to feeling dizzy and passed out. She was brought to the ER and found to have a hgb of 4.9. She is s/p prbc transfusion and notes to feeling better. She also notes to chronic dysphagia to solids and liquids with associated 15 pound weightloss. She denies heavy periods and has no other abnormal bleeding and bruising. Past medical history: None Past surgical history: Denies Family history: Denies hematologic and oncologic problems Social history: Denies tobacco, alcohol, and illicit drug use Allergies: NKA Review of systems: All remaining review of systems including HEENT, cardiovascular, respiratory, gastrointestinal, genitourinary,musculoskeletal, dermatologic, neurologic, and psychiatric are negative unless mentioned in the HPI. Past Patient History - Past Social History Smoking Status: Never Smoked - HEMATOLOGICAL/ONCOLOGICAL Hx AIDS: No Hx Anemia: Yes Hx Human Immunodeficiency Virus (HIV): No - MUSCULOSKELETAL/RHEUMATOLOGICAL Hx Falls: Yes - PSYCHIATRIC Hx Substance Use: No - SURGICAL HISTORY Hx Surgeries: Yes Hx Tubal Ligation: Yes - ANESTHESIA Hx Anesthesia: Yes Hx Anesthesia Reactions: No Hx Malignant Hyperthermia: No Has any member of the family had a problem w/ anesthesia?: No Meds Home Medications: Home Medication List Medication Instructions Recorded Confirmed Type Ascorbic Acid [Vitamin C] 500 mg PO DAILY #30 tab 03/11/18 Rx Docusate [Colace] 100 mg PO BID #60 cap 03/11/18 Rx Ferrous Sulfate 325 mg PO BID #60 tablet 03/11/18 Rx Allergies/Adverse Reactions: Allergies Allergy/AdvReac Type Severity Reaction Status Date / Time No Known Allergies Allergy Verified 03/08/18 12:48 - Medications Medications: Current Medications Acetaminophen (Tylenol 325mg Tab) 650 mg PO Q6 PRN PRN Reason: Pain, Mild (1-3) Iron Sucrose 200 mg/ Sodium (Chloride) 110 mls @ 110 mls/hr IVPB DAILY [facility] Stop: 03/11/18 09:59 Last Admin: 03/10/18 08:51 Dose: 110 mls/hr Ondansetron HCl (Zofran Odt) 4 mg PO Q8H PRN PRN Reason: Nausea/Vomiting Pantoprazole Sodium (Protonix Inj) 40 mg IVP DAILY [facility] Last Admin: 03/10/18 08:51 Dose: 40 mg Tuberculin PPD (Tubersol) 5 tu ID ONCE ONE Stop: 03/10/18 11:48 Physical Exam - Head Exam Head Exam: ATRAUMATIC - Eye Exam Eye Exam: Normal appearance - ENT Exam ENT Exam: Mucous Membranes Dry - Respiratory Exam Respiratory Exam: NORMAL BREATHING PATTERN - Cardiovascular Exam Cardiovascular Exam: +S1, +S2 - GI/Abdominal Exam GI & Abdominal Exam: Normal Bowel Sounds - Extremities Exam Extremities exam: Positive for: normal inspection - Neurological Exam Neurological exam: Oriented x3 - Psychiatric Exam Psychiatric exam: Normal Affect, Normal Mood - Skin Skin Exam: Warm Results - Vital Signs Recent Vital Signs: Last Vital Signs Temp 98.9 F 03/10/18 08:00 Pulse 73 03/10/18 08:00 Resp 20 03/10/18 08:00 BP 93/60 L 03/10/18 08:00 Pulse Ox 99 03/10/18 08:00 - Labs Result Diagrams: 03/11/18 05:24 03/11/18 05:24 Labs: Laboratory Results - last 24 hr 03/10/18 03/10/18 05:20 05:20 WBC 3.5 L RBC 3.53 L Hgb 6.9 L Hct 22.9 L MCV 65.0 L MCH 19.5 L MCHC 29.9 L RDW 31.6 H Plt Count 189 Lactate Dehydrogenase 319 Assessment & Plan (1) Anemia Assessment and Plan: retic count, b12, folate ferritin, FOBT s/p PRBC transfusion Thank you for this interesting consult. Status: Acute
[2018-03-10] MEDS ORDERED: Lidocaine 1% 5ml Abboject ONE (14:52)
--- NOTE | 2018-03-10 15:06 | PCM.SURG1 ---
Surgeon's Initial Post Op Note - Surgeon's Notes Surgeon: Lalo Atkins MD [employer]: NONe Type of Anesthesia: Local Pre-Operative Diagnosis: Cervical lymphadenopathy Operative Findings: Large submandibular node with overall architexture preserved. Post-Operative Diagnosis: Cervical lymphadenopathy Operation Performed: US guided FNA of 2 cm right submandibular node. Specimen/Specimens Removed: 25 g FNA x 4 Estimated Blood Loss: EBL {In ML}: 0 Blood Products Given: N/A Drains Used: No Drains Post-Op Condition: Good Date of Surgery/Procedure: 03/10/18 Time of Surgery/Procedure: 15:00
--- NOTE | 2018-03-10 15:41 | CP.PCM.PN ---
Subjective - Date & Time of Evaluation Date of Evaluation: 03/10/18 Time of Evaluation: 15:53 - Subjective Subjective: I D NOTE CASE REVIEWED ,CASE DISCUSSED c BIOPSY DONE TODAY AWAIT RESULTS HAVE ORDERED ADDITIONAL LABS HEME/ONC TO SEE Objective - Vital Signs/Intake and Output Vital Signs (last 24 hours): Temp Pulse Resp BP Pulse Ox 98.1 F 63 16 99/64 L 99 03/10/18 14:57 03/10/18 14:57 03/10/18 14:57 03/10/18 14:57 03/10/18 14:57 - Medications Medications: Current Medications Acetaminophen (Tylenol 325mg Tab) 650 mg PO Q6 PRN PRN Reason: Pain, Mild (1-3) Iron Sucrose 200 mg/ Sodium (Chloride) 110 mls @ 110 mls/hr IVPB DAILY [facility] Stop: 03/11/18 09:59 Last Admin: 03/10/18 08:51 Dose: 110 mls/hr Ondansetron HCl (Zofran Odt) 4 mg PO Q8H PRN PRN Reason: Nausea/Vomiting Pantoprazole Sodium (Protonix Inj) 40 mg IVP DAILY [facility] Last Admin: 03/10/18 08:51 Dose: 40 mg - Labs Labs: 03/10/18 05:20 03/09/18 10:02 PT 11.6 Seconds (9.8-13.1) 03/09/18 05:02 INR 1.0 03/09/18 05:02 APTT 30.0 Seconds (25.6-37.1) 03/09/18 05:02
[2018-03-11 05:42] LABS: BASO # 0.1 K/uL (0.0-0.2); BASO % 1.4 % (0.0-2.0); EOS # 0.1 K/uL (0.0-0.7); EOS % 1.4 % (0.0-4.0); HEMOGLOBIN 7.6 g/dL (12.0-16.0); LYMPH # 1.7 K/uL (1.0-4.3); LYMPH % 37.3 % (20.0-40.0); MEAN CORPUSCULAR HEMOGLOBIN 20.5 pg (27.0-31.0); MEAN CORPUSCULAR HGB CONC 30.5 g/dL (33.0-37.0); MEAN PLATELET VOLUME 8.6 fl (7.2-11.7); MONO # 0.3 K/uL (0.0-0.8); NEUT # 2.3 K/uL (1.8-7.0); NEUT % 52.9 % (50.0-75.0); NRBC % 1.2 % (0.0-0.0); RBC 3.72 Mil/uL (3.80-5.20); RED CELL DISTRIBUTION WIDTH 33.4 % (11.5-14.5); WHITE BLOOD COUNT 4.4 K/uL (4.8-10.8)
[2018-03-11 05:46] LABS: ALBUMIN 3.1 g/dL (3.5-5.0); ALT/SGPT 32 U/L (9-52); AST/SGOT 34 U/L (14-36); BILIRUBIN,DIRECT 0.1 mg/ml (0.0-0.4); BLOOD UREA NITROGEN 3 mg/dl (7-17); CALCIUM 8.5 mg/dL (8.4-10.2); GFR NON-AFRICAN AMERICAN > 60
--- NOTE | 2018-03-11 08:42 | CP.PCM.PN ---
<Camacho Smith - Last Filed: 03/11/18 12:10> Subjective - Date & Time of Evaluation Date of Evaluation: 03/11/18 Time of Evaluation: 07:40 - Subjective Subjective: PGY-4 GI Fellow Prog Note Pt lying in bed when seen this AM. Had LN biopsy yesterday, results pending. States tolerating dysphagia diet. 5 point ROS negative other than stated above Objective - Vital Signs/Intake and Output Vital Signs (last 24 hours): Temp Pulse Resp BP Pulse Ox 98.4 F 61 20 104/62 98 03/11/18 08:21 03/11/18 08:21 03/11/18 08:21 03/11/18 08:21 03/11/18 08:21 Intake and Output: 03/11/18 03/11/18 06:59 18:59 Intake Total 325 Balance 325 - Medications Medications: Current Medications Acetaminophen (Tylenol 325mg Tab) 650 mg PO Q6 PRN PRN Reason: Pain, Mild (1-3) Last Admin: 03/10/18 23:39 Dose: 650 mg Iron Sucrose 200 mg/ Sodium (Chloride) 110 mls @ 110 mls/hr IVPB DAILY [facility] Stop: 03/11/18 09:59 Last Admin: 03/10/18 08:51 Dose: 110 mls/hr Potassium Chloride/Dextrose/Sod Cl (Potassium Chl 40 Meq In D5-1/2ns) 1,000 mls @ 125 mls/hr IV .Q8H [facility] Stop: 03/12/18 06:41 Morphine Sulfate (Morphine) 1 mg IVP Q6 PRN PRN Reason: Pain, moderate (4-7) Stop: 03/11/18 16:02 Last Admin: 03/10/18 18:10 Dose: 1 mg Ondansetron HCl (Zofran Odt) 4 mg PO Q8H PRN PRN Reason: Nausea/Vomiting Pantoprazole Sodium (Protonix Inj) 40 mg IVP DAILY [facility] Last Admin: 03/10/18 08:51 Dose: 40 mg - Labs Labs: 03/11/18 05:24 03/11/18 05:24 PT 11.6 Seconds (9.8-13.1) 03/09/18 05:02 INR 1.0 03/09/18 05:02 APTT 30.0 Seconds (25.6-37.1) 03/09/18 05:02 - Constitutional Appears: Well, Non-toxic - Head Exam Head Exam: ATRAUMATIC, NORMAL INSPECTION - Eye Exam Eye Exam: EOMI. absent: Conjunctival injection - Respiratory Exam Respiratory Exam: Clear to Ausculation Bilateral, NORMAL BREATHING PATTERN - Cardiovascular Exam Cardiovascular Exam: REGULAR RHYTHM, RRR - GI/Abdominal Exam GI & Abdominal Exam: Soft, Normal Bowel Sounds. absent: Bruit, Distended, Firm , Guarding, Tenderness, Hernia, Mass, Organomegaly, Pulsatile Mass Assessment and Plan - Assessment and Plan (Free Text) Assessment: 42 yo F w/o medical history presenting with syncopal episode found to have Hgb 4.9 with reports of chronic dysphagia. # Dysphagia: To liquids and solids due to severe stricture in upper esophagus ( see EGD report for further details). CT scan with extensive bilateral lymphadenopathy likely causing extrinsic compression. s/p biopsy of R sub mandibular node on 03/10/18. # Acute Microcytic Anemia: Improve post 3 units PRBCs with appropriate, stable response. Likely cause of syncope. Unclear how long has been anemic, but suspect ongoing slow downtrend given history. Reassuringly, FOBT negative in ED and no signs of active GI bleed. Pt reports normal menses. Plan: - Await lymph node biopsy results - Dysphagia diet as tolerated with aspiration precautions - PO liquid PPI daily Pt seen and examined with Dr. Hill. Thank you for the consult. Will sign off at this time. Please page if questions. <Navdeep Hill - Last Filed: 03/11/18 12:45> Objective - Vital Signs/Intake and Output Vital Signs (last 24 hours): Temp Pulse Resp BP Pulse Ox 97.9 F 68 18 102/64 98 03/11/18 12:20 03/11/18 12:20 03/11/18 12:20 03/11/18 12:20 03/11/18 12:20 Intake and Output: 03/11/18 03/11/18 06:59 18:59 Intake Total 325 Balance 325 - Medications Medications: Current Medications Acetaminophen (Tylenol 325mg Tab) 650 mg PO Q6 PRN PRN Reason: Pain, Mild (1-3) Last Admin: 03/10/18 23:39 Dose: 650 mg Potassium Chloride/Dextrose/Sod Cl (Potassium Chl 40 Meq In D5-1/2ns) 1,000 mls @ 125 mls/hr IV .Q8H [facility] Stop: 03/12/18 06:41 Last Admin: 03/11/18 09:15 Dose: 125 mls/hr Morphine Sulfate (Morphine) 1 mg IVP Q6 PRN PRN Reason: Pain, moderate (4-7) Stop: 03/11/18 16:02 Last Admin: 03/10/18 18:10 Dose: 1 mg Ondansetron HCl (Zofran Odt) 4 mg PO Q8H PRN PRN Reason: Nausea/Vomiting Pantoprazole Sodium (Protonix Susp) 40 mg PO DAILY [facility] - Labs Labs: 03/11/18 05:24 03/11/18 05:24 PT 11.6 Seconds (9.8-13.1) 03/09/18 05:02 INR 1.0 03/09/18 05:02 APTT 30.0 Seconds (25.6-37.1) 03/09/18 05:02 Attending/Attestation - Attestation I have personally seen and examined this patient.: Yes I have fully participated in the care of the patient.: Yes I have reviewed all pertinent clinical information, including history, physical exam and plan: Yes Notes (Text): 03/11/18 12:43 Patient seen on GI rounds. In a nutshell this is a 42 yo F w/o medical history presenting with syncopal episode found to have Hgb 4.9 with reports of chronic dysphagia for solids and liquids for few years. S/P EGD that was aborted due to a stricture in upper esophagus right beyond cricopharynegeus- scope not able to be traversed. Ct neck showed cervical lymphadenopathy bilaterally likely compressing esophagus lumen. s/p IR biopsy. Hematology on consult with ID. No further GI work up necessary. Pureed diet as per speech and swallow. Aspiration precautions. Discussed in detail with the primary care physician. Thank you for letting us participate in the care of your patient
[2018-03-11] MEDS: Potassium Chl 40 mEq in D5-1/2 1,000 ML IV SCH ×2 (09:15→15:36)
--- NOTE | 2018-03-11 10:27 | CP.PCM.PN ---
Subjective - Date & Time of Evaluation Date of Evaluation: 03/11/18 Time of Evaluation: 10:25 - Subjective Subjective: Patient seen bedside, sitting up eating breakfast in no acute distress. She admits to mild dizziness but only when watching RN administer IV fluids/meds. She is ambulating without any issues, has no complaints and denies nausea, vomiting, change in vision, shortness of breath, chest pain, constipation or diarrhea. Objective - Vital Signs/Intake and Output Vital Signs (last 24 hours): Temp Pulse Resp BP Pulse Ox 98.2 F 59 L 20 104/62 98 03/11/18 09:00 03/11/18 09:00 03/11/18 09:00 03/11/18 09:00 03/11/18 09:00 Intake and Output: 03/11/18 03/11/18 06:59 18:59 Intake Total 325 Balance 325 - Medications Medications: Current Medications Acetaminophen (Tylenol 325mg Tab) 650 mg PO Q6 PRN PRN Reason: Pain, Mild (1-3) Last Admin: 03/10/18 23:39 Dose: 650 mg Potassium Chloride/Dextrose/Sod Cl (Potassium Chl 40 Meq In D5-1/2ns) 1,000 mls @ 125 mls/hr IV .Q8H [facility] Stop: 03/12/18 06:41 Last Admin: 03/11/18 09:15 Dose: 125 mls/hr Morphine Sulfate (Morphine) 1 mg IVP Q6 PRN PRN Reason: Pain, moderate (4-7) Stop: 03/11/18 16:02 Last Admin: 03/10/18 18:10 Dose: 1 mg Ondansetron HCl (Zofran Odt) 4 mg PO Q8H PRN PRN Reason: Nausea/Vomiting Pantoprazole Sodium (Protonix Inj) 40 mg IVP DAILY [facility] Last Admin: 03/11/18 09:15 Dose: 40 mg - Labs Labs: 03/11/18 05:24 03/11/18 05:24 PT 11.6 Seconds (9.8-13.1) 03/09/18 05:02 INR 1.0 03/09/18 05:02 APTT 30.0 Seconds (25.6-37.1) 03/09/18 05:02 - Constitutional Appears: Non-toxic - Head Exam Head Exam: ATRAUMATIC, NORMAL INSPECTION - Eye Exam Eye Exam: Normal appearance - ENT Exam ENT Exam: Normal External Ear Exam - Neck Exam Neck Exam: Full ROM Additional comments: small bandage dry and intact on R side, s/p IR biopsy - Respiratory Exam Respiratory Exam: Clear to Ausculation Bilateral, NORMAL BREATHING PATTERN. absent: Rhonchi, Wheezes, Respiratory Distress - Cardiovascular Exam Cardiovascular Exam: REGULAR RHYTHM - GI/Abdominal Exam GI & Abdominal Exam: Soft. absent: Guarding, Tenderness, Rebound - Extremities Exam Extremities Exam: Normal Inspection - Back Exam Back Exam: NORMAL INSPECTION - Neurological Exam Neurological Exam: Alert, Awake, Normal Gait, Oriented x3 - Psychiatric Exam Psychiatric exam: Normal Affect, Normal Mood - Skin Skin Exam: Normal Color, Warm Assessment and Plan - Assessment and Plan (Free Text) Assessment: 42-year-old female with no past medical history presents to the ED with symptomatic anemia (Hg 4.9) and 5-gggl-[id number] of dysphagia to solids and liquids. EDG aborted due to esophageal stricture, CT showed bilateral cervical lymphadenopathy (R>L), IR biopsy for LN between floor of mouth and sternocleidomastoid (final report pending). Symptomatic Anemia -Resolved -H/H 7.6/24.9 -Status-post 3 PRBs (2 x 03/08, 1 x 03/10) -IVF: D5 0.5 NS + 40mEq @ 125 mls -Venofer 200 mg -Iron study: Iron <10; %sat 2.4; TIBC 416; Ferritin 1.9 -Stool occult negative -Protonix 40 mg IV -GI (Dr Hill): awaiting IR biopsy results -Hemeatology (Dr. 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 Carpio): consulted for possible infectious lymphadenopathy, ordered ELLIE & lymphocyte subset panel, awaiting IR biopsy results -HIV nonreactive -RPR negative -Follow-up PPD/Quantiferon -Follow-up CMV -Follow-up ELLIE -Follow-up lymphocyte subset panel Hypokalemia -K 3.3 -IVF changed to D5 0.5 NS + 40 mEq (was D5 NS @ 150) DVT Prophylaxis -SCDs -Patient ambulating
[2018-03-11 12:21] VITALS: BP 102/64; PULSE 68; RESP 18; TEMP 97.9
--- NOTE | 2018-03-11 12:50 | CT ---
PROCEDURE: Date of procedure: 03/10/2018 Procedure: Ultrasound-guided FNA of right submandibular lymph node, CPT 24769 Ultrasound guidance for biopsy, [address] Medications: 3cc 1% Lidocaine HISTORY: Multiple cervical lymph nodes with a 2.6 cm right submanibular lymph node. TECHNIQUE: Following informed consent and procedure time-out, limited ultrasound patient's right neck demonstrates multiple enlarged lymph nodes which is ovoid shape and hypoechoic. Largest right submandibular lymph node measures 2.6 cm. The patient's neck was prepped and draped in the usual sterile fashion. The skin was anesthetized with 1 percent lidocaine. Ultrasound-guided fine needle aspiration was then performed using a 25 gauge needle. A total of 4 passes were made into the lymph node under direct ultrasound guidance. FNA specimens were obtained and sent for routine pathology. A post biopsy ultrasound showed no hematoma IMPRESSION: Ultrasound-guided biopsy of enlarged right neck lymph node.
[2018-03-11 14:20] VITALS: O2SAT 96
--- NOTE | 2018-03-11 16:39 | CP.PCM.DIS ---
Provider - Provider Date of Admission: 03/08/18 17:03 Attending physician: Ronn Smith DO Primary care physician: none Consults: GI consult Hematology Infectious disease consult Time Spent in preparation of Discharge (in minutes): 20 Hospital Course - Lab Results Lab Results: Most Recent Lab Values WBC 4.4 K/uL (4.8-10.8) L 03/11/18 05:24 RBC 3.72 Mil/uL (3.80-5.20) L 03/11/18 05:24 Hgb 7.6 g/dL (12.0-16.0) L 03/11/18 05:24 Hct 24.9 % (34.0-47.0) L 03/11/18 05:24 MCV 67.0 fl (81.0-99.0) L D 03/11/18 05:24 MCH 20.5 pg (27.0-31.0) L 03/11/18 05:24 MCHC 30.5 g/dL (33.0-37.0) L 03/11/18 05:24 RDW 33.4 % (11.5-14.5) H 03/11/18 05:24 Plt Count 152 K/uL (130-400) 03/11/18 05:24 MPV 8.6 fl (7.2-11.7) 03/11/18 05:24 Neut % (Auto) 52.9 % (50.0-75.0) 03/11/18 05:24 Lymph % (Auto) 37.3 % (20.0-40.0) 03/11/18 05:24 [place]yman % (Auto) 7.0 % (0.0-10.0) 03/11/18 05:24 Eos % (Auto) 1.4 % (0.0-4.0) 03/11/18 05:24 Baso % (Auto) 1.4 % (0.0-2.0) 03/11/18 05:24 Neut # (Auto) 2.3 K/uL (1.8-7.0) 03/11/18 05:24 Lymph # (Auto) 1.7 K/uL (1.0-4.3) 03/11/18 05:24 Lyman # (Auto) 0.3 K/uL (0.0-0.8) 03/11/18 05:24 Eos # (Auto) 0.1 K/uL (0.0-0.7) 03/11/18 05:24 Baso # (Auto) 0.1 K/uL (0.0-0.2) 03/11/18 05:24 PT 11.6 Seconds (9.8-13.1) 03/09/18 05:02 INR 1.0 03/09/18 05:02 APTT 30.0 Seconds (25.6-37.1) 03/09/18 05:02 Sodium 141 mmol/l (132-148) 03/11/18 05:24 Potassium 3.3 MMOL/L (3.6-5.0) L 03/11/18 05:24 Chloride 112 mmol/L (98-107) H 03/11/18 05:24 Carbon Dioxide 22 mmol/L (22-30) 03/11/18 05:24 Anion Gap 10 (10-20) 03/11/18 05:24 BUN 3 mg/dl (7-17) L 03/11/18 05:24 Creatinine 0.5 mg/dl (0.7-1.2) L 03/11/18 05:24 Est GFR ( Amer) > 60 03/11/18 05:24 Est GFR (Non-Af Amer) > 60 03/11/18 05:24 POC Glucose (mg/dL) 105 mg/dL (65-110) 03/08/18 13:26 Random Glucose 92 mg/dL (65-105) 03/11/18 05:24 Calcium 8.5 mg/dL (8.4-10.2) 03/11/18 05:24 Phosphorus 3.0 mg/dl (2.5-4.5) 03/09/18 10:02 Magnesium 1.9 MG/DL (1.6-2.3) 03/09/18 10:02 Iron < 10 ug/dL (37-170) L 03/08/18 18:04 TIBC 416 ug/dL (250-450) 03/08/18 18:04 % Saturation 2.40 % (20-55) L 03/08/18 18:04 Ferritin 1.9 ng/Ml (6.24-137.0) L 03/08/18 18:04 Total Bilirubin 1.7 mg/dl (0.2-1.3) H 03/11/18 05:24 Direct Bilirubin 0.1 mg/ml (0.0-0.4) 03/11/18 05:24 AST 34 U/L (14-36) 03/11/18 05:24 ALT 32 U/L (9-52) 03/11/18 05:24 Alkaline Phosphatase 31 U/L (38-126) L 03/11/18 05:24 Lactate Dehydrogenase 319 U/L (313-618) 03/10/18 05:20 Troponin I 0.0120 ng/mL (0.00-0.120) 03/08/18 15:30 Total Protein 6.3 G/DL (6.3-8.2) 03/11/18 05:24 Albumin 3.1 g/dL (3.5-5.0) L 03/11/18 05:24 Globulin 3.1 gm/dL (2.2-3.9) 03/11/18 05:24 Albumin/Globulin Ratio 1.0 (1.0-2.1) 03/11/18 05:24 Free T4 0.89 ng/dL (0.78-2.19) 03/08/18 18:14 TSH 3rd Generation 3.55 mIU/ML (0.46-4.68) 03/08/18 18:14 Urine Color Yellow (YELLOW) 03/08/18 16:13 Urine Clarity Slighty-cloudy (Clear) 03/08/18 16:13 Urine pH 6.0 (5.0-8.0) 03/08/18 16:13 Ur Specific [place] 1.012 (1.003-1.030) 03/08/18 16:13 Urine Protein 30 mg/dL (NEGATIVE) 03/08/18 16:13 Urine Glucose (UA) Neg mg/dL (Normal) 03/08/18 16:13 Urine Ketones Negative mg/dL (NEGATIVE) 03/08/18 16:13 Urine Blood Negative (NEGATIVE) 03/08/18 16:13 Urine Nitrate Negative (NEGATIVE) 03/08/18 16:13 Urine Bilirubin Negative (NEGATIVE) 03/08/18 16:13 Urine Urobilinogen 0.2-1.0 mg/dL (0.2-1.0) 03/08/18 16:13 Ur Leukocyte Esterase Neg Abby/uL (Negative) 03/08/18 16:13 Urine RBC (Auto) 3 /hpf (0-3) 03/08/18 16:13 Urine Microscopic WBC 4 /hpf (0-5) 03/08/18 16:13 Ur Squamous Epith Cells 1 /hpf (0-5) 03/08/18 16:13 Hyaline Casts 3-5 /hpf (0-2) H 03/08/18 16:13 Stool Occult Blood Negative (NEGATIVE) 03/08/18 18:02 RPR Nonreactive (NONREACTIVE) 03/10/18 12:11 HIV-1 Ab Rapid Screen Non reactive (NON REAC) 03/10/18 12:12 HIV 1&2 Antibody Screen Negative (NEGATIVE) 03/10/18 12:12 Blood Type A POSITIVE 03/10/18 17:14 Blood Type Confirm A POSITIVE 03/08/18 17:20 Antibody Screen Negative 03/10/18 17:14 Crossmatch See Detail 03/10/18 17:14 BBK History Checked Patient has bt 03/10/18 17:14 - Hospital Course Hospital Course: 42-year-old female from [facility] , with no past medical history presented to the ED with syncopal episode and found to have Hgb 4.9 with microcytosis MCV 55.Patient was admitted with symptomatic anemia and transfused with 3 unit PRBC with HGb post transfusion 7.6. Anemia work up showed severely depleted iron stores with Ferritin 1.9 and iron < 10 . Hematology was consulted and case was discussed with who believes patient has severe anemia due to iron deficiency and recommended Venofer IV x 3 doses and discharge home on Po ferrous sulfate with repeat CBC in 2 weeks. Also patient complained of some dysphagia with solids and liquids for almost 3 years so GI was consulted .Patient taken for EGD but the scope could not pass through due to esophageal stricture . CT head and chest showed no acute pathology , some non specific LN noted . IR was consulted and aspiration biopsy was performed of right submandibular LN. HIV , RPR test were reported as negative and occult blood was negative Speech therapist was consulted and recommend dysphagia modified , puree diet and patient tolerating well with no difficulty . At present patient is hemodynamicdally stable. Will discharge patient home on Po ferrous sulfate supplements with follow up with [facility] for LN aspiration biopsy results and the rest of the work up .She will need repeat CBc as outpatient Patient has suspicious diagnosis of Gatito Anil syndrome so will need to follow up witH GI as outpatient ,have a videofluoroscopy or barium Xray as outpatient ( no emergency at present since patient is tolerating puree diet)to confirm presence of web / stricture . If diagnosis confirmed will most likely need to be referred to tertiary center for esophageal stricture dilatation . 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 Carpio): consulted for possible infectious lymphadenopathy, ordered ELLIE & lymphocyte subset panel, awaiting IR biopsy results HIV nonreactive RPR negative Follow-up PPD/Quantiferon( patient has no respiratory symptoms) Follow-up CMV,ELLIE ,Follow-up lymphocyte subset panel 6.Hypokalemia replaced Discharge Exam - Head Exam Head Exam: ATRAUMATIC, NORMAL INSPECTION - Eye Exam Eye Exam: EOMI, PERRL Pupil Exam: NORMAL ACCOMODATION - ENT Exam ENT Exam: Mucous Membranes Moist, Normal Exam - Neck Exam Neck exam: Full Rom, Normal Inspection - Respiratory Exam Respiratory Exam: Clear to PA & Lateral, NORMAL BREATHING PATTERN. absent: Rales, Rhonchi, Wheezes - Cardiovascular Exam Cardiovascular Exam: REGULAR RHYTHM, RRR, +S1, +S2. absent: JVD - GI/Abdominal Exam GI & Abdominal Exam: Normal Bowel Sounds, Soft. absent: Distended, Guarding, Rebound, Tenderness - Rectal Exam Rectal Exam: Deferred - Extremities Exam Extremities exam: full ROM, normal inspection, pedal pulses present - Back Exam Back exam: NORMAL INSPECTION - Neurological Exam Neurological exam: Alert, CN II-XII Intact, Oriented x3, Reflexes Normal - Psychiatric Exam Psychiatric exam: Normal Affect - Skin Skin Exam: Dry, Pallor, Warm Discharge Plan - Discharge Medications Prescriptions: Ascorbic Acid [Vitamin C] 500 mg PO DAILY #30 tab Docusate [Colace] 100 mg PO BID #60 cap Ferrous Sulfate 325 mg PO BID #60 tablet - Follow Up Plan Condition: STABLE Disposition: HOME/ ROUTINE Patient education suggested?: Yes Instructions: Anemia of Chronic Disease, Syncope (Fainting) (DC) Additional Instructions: Follow up with PMD in [address] [facility] appointment 03/25/18 @ 3:40pm with Dr Murillo Referrals: [facility] [Outside]
--- NOTE | 2018-03-11 22:51 | CP.PCM.PN ---
Subjective - Date & Time of Evaluation Date of Evaluation: 03/11/18 Time of Evaluation: 12:00 - Subjective Subjective: Feeling better after transfusion Objective - Vital Signs/Intake and Output Vital Signs (last 24 hours): Temp Pulse Resp BP Pulse Ox 97.9 F 68 18 102/64 96 03/11/18 13:00 03/11/18 13:00 03/11/18 13:00 03/11/18 13:00 03/11/18 13:00 - Labs Labs: 03/11/18 05:24 03/11/18 05:24 PT 11.6 Seconds (9.8-13.1) 03/09/18 05:02 INR 1.0 03/09/18 05:02 APTT 30.0 Seconds (25.6-37.1) 03/09/18 05:02 - Head Exam Head Exam: ATRAUMATIC - Eye Exam Eye Exam: Normal appearance - ENT Exam ENT Exam: Mucous Membranes Dry - Respiratory Exam Respiratory Exam: NORMAL BREATHING PATTERN - Cardiovascular Exam Cardiovascular Exam: +S1, +S2 - GI/Abdominal Exam GI & Abdominal Exam: Normal Bowel Sounds Assessment and Plan (1) Anemia Assessment & Plan: work up consistent with iron deficiency anemia s/p PRBC transfusion on IV iron Status: Acute (2) Lymphadenopathy Assessment & Plan: s/p biopsy outpatient f/u Status: Acute
[2018-03-12] MEDS ORDERED: Pantoprazole 40 mg Susp UD PO SCH (09:00)
[2018-03-12 18:05] LABS: % CD4 (T HELPER CELL) 46 Percent (30-61); % CD8 (SUPPRESSOR T CELL) 20 Percent (12-42); ABSOLUTE CD4 CELLS 770 Cells/mcL (490-1740); ABSOLUTE CD8 CELLS 336 Cells/mcL (180-1170); ABSOLUTE LYMPHOCYTES 1675 Cells/mcL (850-3900); HELPER/SUPPRESSOR RATIO 2.29 Ratio (0.86-5.00)
== END 2018-03-11 15:45 | disposition home or self-care (01) | DRG 804 ==
LOC: EDBD 12:43 → H.ER 12:43 → H.ERHOLD 17:03 → H.TEL 19:01
PROVIDERS: ADMIT Internal Medicine; ATTEND Internal Medicine
PROC: 30233N1 Transfusion of Nonautologous Red Blood Cells into Peripheral Vein, Percutaneous Approach (ICD-10-PCS; principal; 2018-03-08)
PROC: 0DJ08ZZ Inspection of Upper Intestinal Tract, Via Natural or Artificial Opening Endoscopic (ICD-10-PCS; 2018-03-09)
PROC: 07913ZX Drainage of Right Neck Lymphatic, Percutaneous Approach, Diagnostic (ICD-10-PCS; 2018-03-10)
DX: D50.9 Iron deficiency anemia, unspecified (principal); K22.2 Esophageal obstruction; K14.0 Glossitis; R59.0 Localized enlarged lymph nodes; E87.6 Hypokalemia; D50.1 Sideropenic dysphagia; R13.12 Dysphagia, oropharyngeal phase

== ENCOUNTER 2018-04-06 21:44 | Emergency (ER) | payer MEDICAID ==
[2018-04-06 22:10] VITALS: BP 112/75; PULSE 69; RESP 20; TEMP 98.9; O2SAT 100
--- NOTE | 2018-04-07 00:01 | ED PDOC ---
HPI: CCC, URI, Sore Throat Time Seen by Provider: 04/06/18 23:06 Chief Complaint (Nursing): ENT Problem Chief Complaint (Provider): ENT problem History Per: Patient History/Exam Limitations: no limitations Onset/Duration Of Symptoms: Hrs (24x hours) Current Symptoms Are (Timing): Still Present Location Of Pain: Ear(s) (right) Severity: Moderate Additional Complaint(s): 42 year old female with a past medical history of anemia presents to the ED with complaints of right ear pain that started 24x hours ago as mild pain, and has gradually become an intense pain. Patient states that the pain radiates to her neck. Patient reports having right sided otalgia, and denies having drainage. Patient reports taking advil with no improvement of pain. PMD: None. Past Medical History Reviewed: Historical Data, Nursing Documentation, Vital Signs Vital Signs: Last Vital Signs Temp 98.9 F 04/06/18 22:08 Pulse 69 04/06/18 22:08 Resp 20 04/06/18 22:08 BP 112/75 04/06/18 22:08 Pulse Ox 100 04/06/18 22:08 - Medical History PMH: Anemia, Asthma Denies: HIV - Family History Family History: States: No Known Family Hx - Social History Current smoker - smoking cessation education provided: No Alcohol: None Drugs: Denies - Immunization History Hx Tetanus Toxoid Vaccination: No Hx Influenza Vaccination: No Hx Pneumococcal Vaccination: No - Home Medications Home Medications: Ambulatory Orders Medication Instructions Recorded Albuterol HFA [Ventolin HFA 90 2 puff IH Q12H PRN 11/11/16 mcg/actuation (8 g)] Azithromycin [Zithromax] 250 mg PO DAILY #6 tab 11/11/16 Ascorbic Acid [Vitamin C] 500 mg PO DAILY #30 tab 03/11/18 Docusate [Colace] 100 mg PO BID #60 cap 03/11/18 RX: Ferrous Sulfate 325 mg PO BID #60 tablet 03/11/18 Ciprofloxacin/Dexamethasone 4 drop AD BID 7 Days bottle 04/07/18 [Ciprodex Otic] RX: Ibuprofen [Motrin Tab] 600 mg PO Q6 PRN #16 tab 04/07/18 - Allergies Allergies/Adverse Reactions: Allergies Allergy/AdvReac Type Severity Reaction Status Date / Time No Known Allergies Allergy Verified 04/06/18 22:08 Review of Systems ROS Statement: Except As Marked, All Systems Reviewed And Found Negative ENT: Positive for: Ear Pain (right), Other (right ear pain radiates to neck) Physical Exam - Reviewed Nursing Documentation Reviewed: Yes Vital Signs Reviewed: Yes - Physical Exam Appears: Positive for: Well, Non-toxic, No Acute Distress Head Exam: Positive for: ATRAUMATIC, NORMOCEPHALIC Skin: Positive for: Normal Color ENT: Positive for: TM Is/Are (normal), Other (right ear canal redness and sensitivity. tenderness upon introduction of speculum.(-) mastoid tenderness. left ear canal normal.) Cardiovascular/Chest: Positive for: Regular Rate, Rhythm Respiratory: Positive for: Normal Breath Sounds Lymphatic: Positive for: Adenopathy (right sided internal cervical adenopathy) Neurologic/Psych: Positive for: Alert, Oriented (3x) - ECG O2 Sat by Pulse Oximetry: 100 (RA) Pulse Ox Interpretation: Normal Medical Decision Making Medical Decision Makin:06 Initial impression: 42 year old female patient with acute otitis externa. Initial plan: * cortisporin otic soln 4 drop AD * toradol 60 mg IM * reevaluation Scribe Attestation: Documented by Maya Duran, acting as a scribe for Moe Gaines MD. Provider Scribe Attestation: All medical record entries made by the Scribe were at my direction and personally dictated by me. I have reviewed the chart and agree that the record accurately reflects my personal performance of the history, physical exam, medical decision making, and the department course for this patient. I have also personally directed, reviewed, and agree with the discharge instructions and disposition. Disposition - Clinical Impression Clinical Impression: Otitis externa - Disposition Referrals: [facility] [Outside] Bautista Enrique MD [Staff Provider] - Disposition: Routine/Home Disposition Time: 00:15 Condition: IMPROVED Prescriptions: Ciprofloxacin/Dexamethasone [Ciprodex Otic] 4 drop AD BID 7 Days bottle RX: Ibuprofen [Motrin Tab] 600 mg PO Q6 PRN #16 tab PRN Reason: ear ache Instructions: Outer Ear Infection Forms: [facility] (Faroese) Print Language: MAORI
== END 2018-04-07 00:15 | disposition home or self-care (01) ==
LOC: H.ER 21:44
DX: H60.509 Unspecified acute noninfective otitis externa, unspecified ear (principal); J45.909 Unspecified asthma, uncomplicated
CPT/HCPCS: 96372; 99282; J1885